=== PATIENT | male | born 1955 | race Caucasian/White ===

== ENCOUNTER 2021-02-12 17:29 | Observation (INO) ==
[2021-02-12] MEDS ORDERED: Acetaminophen 325 MG TABLET PO PRN (20:49)
[2021-02-12] MEDS ORDERED: Ondansetron 4 MG/2 ML VIAL IVP PRN (20:49)
[2021-02-12] MEDS ORDERED: Naloxone 0.4 MG/ML INJ IVP PRN (20:49)
[2021-02-12] MEDS ORDERED: Melatonin 3 MG TABLET PO PRN (20:49)
[2021-02-13] MEDS ORDERED: Perflutren Lipid Microsphere 1.3 ML in 0.9 % Sodium Chloride 8.7 ML IVP PRN (01:42)
[2021-02-13] MEDS ORDERED: Nitroglycerin 0.4 MG TAB.SUBL SL PRN (01:42)
[2021-02-13] MEDS ORDERED: Dextrose Gel 15 GM/37.5 ML TUBE PO PRN ×2 (01:46)
[2021-02-13] MEDS ORDERED: *HR* Dextrose 50 % in Water (Vial) 50 ML VIAL IVP PRN (01:46)
[2021-02-13] MEDS ORDERED: D5% in Water 1,000 ML IVC PRN (01:46)
[2021-02-13] MEDS: Azithromycin 500 MG in 0.9 % Sodium Chloride 250 ML IVPB SCH (01:52)
[2021-02-13 02:30] LABS: Basophils % 0.4 %; Eosinophils % 0.2 %; Hematocrit 46.8 % (37.5-50.1); Hemoglobin 15.7 g/dL (12.9-16.9); Immature Granulocytes % 0.9 % (0-4); Lymphocytes # 0.9 K/mcL (0.6-4.6); Lymphocytes % 15.5 %; Mean Corpuscular HGB Conc 33.5 g/dL (31.6-35.5); Mean Corpuscular Volume 92.5 fL (83.0-100.0); Mean Platelet Volume 9.1 fL (9.4-12.4); Monocytes # 0.1 K/mcL (0.0-1.3); Monocytes % 1.4 %; Neutrophils # 4.6 K/mcL (1.6-8.9); Platelet Count 318 K/mcL (140-400); Red Blood Count 5.06 M/mcL (4.19-5.50); Red Cell Distribution Width 12.8 % (11.5-14.5); Segmented Neutrophils % 81.6 %; White Blood Count 5.7 K/mcL (4.3-11.1)
[2021-02-13 02:46] LABS: Chol/HDL Ratio 3.7 (0-4.9)
[2021-02-13 02:51] LABS: Alanine Aminotransferase 15 Units/L (7-52); Albumin 4.1 g/dL (3.5-5.7); Albumin/Globulin Ratio 1.2 (1.1-2.2); Alkaline Phosphatase 86 Units/L (34-104); Aspartate Amino Transferase 13 Units/L (13-39); BUN/Creatinine Ratio 18 (6-26); Bilirubin,Total 0.5 mg/dL (0.3-1.0); Blood Urea Nitrogen 17 mg/dL (8-23); Calcium 9.6 mg/dL (8.6-10.3); Carbon Dioxide 29 mEq/L (23-29); Chloride 96 mEq/L (98-107); Globulin 3.4 g/dL (2.4-3.5); Glucose 171 mg/dL (70-105); Osmolality,Calculated 282 (280-300); Potassium 4.8 mEq/L (3.5-5.1); Sodium 133 mEq/L (136-145); Total Protein 7.5 g/dL (6.4-8.9); eGFR For African Americans > 60 (> 60); eGFR For Non-African Americans > 60 (> 60)
[2021-02-13] MEDS: Ipratropium/Albuterol Neb 3 ML IH SCH ×5 (03:15→22:59)
[2021-02-13] MEDS: Insulin LISPRO 300 UNITS/3 ML VIAL SUBQ SCH ×5 (04:42→21:05)
[2021-02-13] MEDS: Aspirin 81 MG TAB.CHEW PO SCH (08:41)
[2021-02-13] MEDS: predniSONE 20 MG TABLET PO SCH (08:41)
[2021-02-13] MEDS: *HR* Heparin 5,000 UNIT/ML VIAL SQ SCH (18:31)
[2021-02-13] MEDS: Budesonide/Formoterol 160/4.5 1 PUFF INH IH SCH (22:59)
[2021-02-14] MEDS: Insulin LISPRO 300 UNITS/3 ML VIAL SUBQ SCH ×6 (02:43→17:50)
[2021-02-14] MEDS: Azithromycin 500 MG in 0.9 % Sodium Chloride 250 ML IVPB SCH (03:19)
[2021-02-14] MEDS: Ipratropium/Albuterol Neb 3 ML IH SCH ×4 (04:02→21:55)
[2021-02-14] MEDS: *HR* Heparin 5,000 UNIT/ML VIAL SQ SCH ×2 (05:25→17:45)
[2021-02-14] MEDS ORDERED: Regadenoson 0.4 MG/5 ML SYRINGE IVP ONE (06:18)
[2021-02-14 06:36] LABS: Hematocrit 43.8 % (37.5-50.1); Hemoglobin 14.2 g/dL (12.9-16.9); Mean Corpuscular HGB Conc 32.4 g/dL (31.6-35.5); Mean Corpuscular Volume 92.6 fL (83.0-100.0); Mean Platelet Volume 9.3 fL (9.4-12.4); Platelet Count 319 K/mcL (140-400); Red Blood Count 4.73 M/mcL (4.19-5.50); Red Cell Distribution Width 12.7 % (11.5-14.5); White Blood Count 13.9 K/mcL (4.3-11.1)
[2021-02-14 06:55] LABS: BUN/Creatinine Ratio 21 (6-26); Blood Urea Nitrogen 21 mg/dL (8-23); Calcium 9.5 mg/dL (8.6-10.3); Carbon Dioxide 33 mEq/L (23-29); Chloride 98 mEq/L (98-107); Glucose 110 mg/dL (70-105); Osmolality,Calculated 286 (280-300); Potassium 3.8 mEq/L (3.5-5.1); Sodium 136 mEq/L (136-145); eGFR For African Americans > 60 (> 60); eGFR For Non-African Americans > 60 (> 60)
[2021-02-14] MEDS: amLODIPine 5 MG TABLET PO SCH (08:39)
[2021-02-14] MEDS: predniSONE 20 MG TABLET PO SCH (08:39)
[2021-02-14] MEDS: Aspirin 81 MG TAB.CHEW PO SCH (08:39)
[2021-02-14] MEDS ORDERED: Isosorbide MONOnitrate (24 HR) 30 MG TAB.ER.24H PO SCH (09:00)
[2021-02-14] MEDS: Isosorbide MONOnitrate (24 HR) 30 MG TAB.ER.24H PO SCH (10:04)
[2021-02-14] MEDS: Budesonide/Formoterol 160/4.5 1 PUFF INH IH SCH ×2 (11:01→21:56)
[2021-02-14] MEDS ORDERED: Insulin LISPRO 300 UNITS/3 ML VIAL SUBQ SCH (21:00)
[2021-02-15] MEDS: Azithromycin 500 MG in 0.9 % Sodium Chloride 250 ML IVPB SCH (01:53)
[2021-02-15] MEDS: Ipratropium/Albuterol Neb 3 ML IH SCH (03:24)
[2021-02-15] MEDS: *HR* Heparin 5,000 UNIT/ML VIAL SQ SCH (04:59)
[2021-02-15 05:12] LABS: Hematocrit 40.6 % (37.5-50.1); Hemoglobin 13.3 g/dL (12.9-16.9); Mean Corpuscular HGB Conc 32.8 g/dL (31.6-35.5); Mean Corpuscular Hemoglobin 29.9 pg (28.0-33.3); Mean Corpuscular Volume 91.2 fL (83.0-100.0); Mean Platelet Volume 9.4 fL (9.4-12.4); Platelet Count 290 K/mcL (140-400); Red Blood Count 4.45 M/mcL (4.19-5.50); Red Cell Distribution Width 12.8 % (11.5-14.5); White Blood Count 13.8 K/mcL (4.3-11.1)
[2021-02-15 05:30] LABS: Calcium 8.9 mg/dL (8.6-10.3); Carbon Dioxide 30 mEq/L (23-29); Chloride 100 mEq/L (98-107); Glucose 94 mg/dL (70-105); Potassium 3.8 mEq/L (3.5-5.1); Sodium 135 mEq/L (136-145); eGFR For African Americans > 60 (> 60); eGFR For Non-African Americans > 60 (> 60)
[2021-02-15 05:38] LABS: BUN/Creatinine Ratio 22 (6-26); Blood Urea Nitrogen 20 mg/dL (8-23); Osmolality,Calculated 282 (280-300)
[2021-02-15 06:57] VITALS: BP 141/80
[2021-02-15] MEDS: amLODIPine 5 MG TABLET PO SCH (08:56)
[2021-02-15] MEDS: Aspirin 81 MG TAB.CHEW PO SCH (08:56)
[2021-02-15] MEDS: predniSONE 20 MG TABLET PO SCH (08:57)
[2021-02-15] MEDS: Isosorbide MONOnitrate (24 HR) 30 MG TAB.ER.24H PO SCH (08:57)
[2021-02-15] MEDS: Insulin LISPRO 300 UNITS/3 ML VIAL SUBQ SCH (08:59)
== END 2021-02-15 12:43 | disposition home or self-care (01) ==
LOC: 3BNU → SUATTDRO 20:19
PROVIDERS: ADMIT Student in an Organized Health Care Education/Training Program; ATTEND Nurse Practitioner